=== PATIENT | female | born 1965 | race Caucasian/White ===

== ENCOUNTER 2018-10-17 09:43 | Emergency (ER) | payer BC ==
--- OUTSIDE RECORDS SUMMARY | 2018-10-17 09:51 | XMS REPORT | Continuity of Care Document ---
:1965 External Reference #:[id number] Author Name Ernestine Tavarez Care Team Providers Name Role Phone Foster Trejo MD Primary Care Physician Unavailable Payers Date Identification Numbers Payment Provider Subscriber Policy Number: [id number] [employer] Kana Evans PayID: [id number] [address] [address] [place] [address] Family History Date Family Member(s) Observation Comments General Diabetes General Heart Disease General Hypertension Social History Type Date Description Comments Sex Unknown Lives With Spouse Occupation nurse practioner Tobacco Use Start: Unknown Patient has never smoked Smoking Status Reviewed: 09/30/18 Patient has never smoked Allergies, Adverse Reactions, Alerts Description No Known Drug Allergies Medications Active Medications SIG Qnty Indications Ordering Provider Date Synthroid 1 by mouth every Unknown 100mcg Tablets day History Medications Ciprofloxacin HCL 1 tab by mouth 6tabs Z71.9 Chapin DMeena 06/27/2017 - 500mg twice a day if Gadiel Low 09/29/2018 Tablets needed for diarrhea Atovaquone-Proguanil 1 tab by mouth 20tabs Z71.9 Chapin DMeena 06/27/2017 - HCL daily, 2 days Gadiel Low 09/29/2018 250-100mg Tablets before trip, each day there, 7 days after return Immunizations CPT Code Status Date Vaccine Lot # [id number] Given 01/04/2018 Hepatitis A Vaccine Adult Dosage [id number] Given 06/27/2017 Typhoid Vaccine [id number] Given 06/27/2017 Hepatitis A Vaccine Adult Dosage [id number] Vital Signs Date Vital Result Comment 09/30/2018 1:10pm Height 66 inches 5'6" Weight 136.00 lb BP Systolic 124 mmHg BP Diastolic 80 mmHg Respiratory Rate 14 /min Body Temperature 96.8 F Pain Level 3 BMI (Body Mass Index) 21.9 kg/m2 06/27/2017 8:56am Height 66 inches 5'6" Weight 149.00 lb Heart Rate 60 /min BP Systolic Sitting 128 mmHg BP Diastolic Sitting 78 mmHg Respiratory Rate 14 /min Body Temperature 97.5 F BMI (Body Mass Index) 24.0 kg/m2 Encounters Type Date Location Provider Dx Diagnosis Office Visit 07/11/2018 [facility] AT Angela Neely, L40.8 Other psoriasis 11:00a Kartik BEE Office Visit 06/27/2017 [facility] Chapin Turk Z71.9 Counseling, 8:50a Infectious Diseases Gadiel Low unspecified Z23 Encounter for immunization Plan of Treatment Future Appointment(s):10/16/2018 8:15 am - Joyce Jay M.D. at [facility]11/21/2018 2:30 pm - Angela Neely MD at [facility] AT Kbkgeggm84/29/2019 - Joyce Jay M.D.M25.422 Effusion, left elbowFollow up: Follow up: 2 czvqiH42.522 Pain in left sreveA72.xxxA Unspecified fall, initial encounter
--- OUTSIDE RECORDS SUMMARY | 2018-10-17 09:51 | XMS REPORT | Continuity of Care Document ---
:1965 External Reference #:[id number] Author Name Joyce Jay M.D. (transmitted by agent of provider Tonya Guerrero) Address [address] [place] [address] Care Team Providers Name Role Phone Foster Trejo MD - Internal Medicine Care Team Information Strategy Analyst Problems Active Problems Provider Date Peroneal tendinitis, left leg Joyce Jay M.D. Onset: 10/16/2018 Arthralgia of the ankle and/or foot Joyce Jay M.D. Onset: 10/16/2018 Social History Type Date Description Comments Sex Unknown Tobacco Use Start: Unknown Patient has never smoked Smoking Status Reviewed: 10/16/18 Patient has never smoked Allergies, Adverse Reactions, Alerts Description No Known Drug Allergies Medications Active Medications SIG Qnty Indications Ordering Provider Date Synthroid 1 by mouth every Unknown 100mcg Tablets day Immunizations CPT Code Status Date Vaccine Lot # [id number] Given 01/04/2018 Hepatitis A Vaccine Adult Dosage [id number] Given 06/27/2017 Typhoid Vaccine [id number] Given 06/27/2017 Hepatitis A Vaccine Adult Dosage [id number] Vital Signs Date Vital Result Comment 10/16/2018 8:32am Height 66.75 inches 5'6.75" Weight 137.00 lb Heart Rate 60 /min Body Temperature 96.7 F O2 % BldC Oximetry 99 % BMI (Body Mass Index) 21.6 kg/m2 09/30/2018 1:10pm Height 66 inches 5'6" Weight 136.00 lb BP Systolic 124 mmHg BP Diastolic 80 mmHg Respiratory Rate 14 /min Body Temperature 96.8 F Pain Level 3 BMI (Body Mass Index) 21.9 kg/m2 Results Description No Information Available Procedures Description No Information Available Medical Devices Description No Information Available Encounters Type Date Location Provider Dx Diagnosis Office Visit 09/30/2018 [facility] Joyce Jay, M25.522 Pain in left 1:[facility] elbow M25.422 Effusion, left elbow W19.xxxA Unspecified fall, initial encounter Office Visit 07/11/2018 11:00a [facility] AT Angela Neely, L40.8 Other psoriasis Kartik MD Assessments Date Code Description Provider 10/16/2018 M25.522 Pain in left elbow Joyce Jay M.D. 10/16/2018 M25.422 Effusion, left elbow Joyce Jay M.D. 10/16/2018 S52.125A Nondisplaced fracture of head of left radius, Joyce Jay M.D. initial encounter for closed fracture 10/16/2018 M25.572 Pain in left ankle and joints of left foot Joyce Jay M.D. 10/16/2018 M76.72 Peroneal tendinitis, left leg Joyce Jay M.D. 09/30/2018 M25.522 Pain in left elbow Joyce Jay M.D. 09/30/2018 M25.422 Effusion, left elbow Joyce Jay M.D. 09/30/2018 W19.xxxA Unspecified fall, initial encounter Joyce Jay M.D. 07/11/2018 L40.8 Other psoriasis Angela Neely MD Plan of Treatment Future Appointment(s):11/21/2018 2:30 pm - Angela Neely MD at [facility] AT Tzovdkvj78/14/2019 - Joyce Jay M.D.M25.522 Pain in left eupicV97.422 Effusion, left ltnlyA45.125A Nondisplaced fracture of head of left radius, initial encounter for closed naaxxxvwD19.572 Pain in left ankle and joints of left footFollow up:Follow up: after testing is completed - mri l footM76.72 Peroneal tendinitis, left leg Functional Status Description No Information Available Mental Status Description No Information Available Referrals Description No Information Available
--- NOTE | 2018-10-17 10:06 | ED ---
Lower Extremity - HPI Summary HPI Summary: 53 year old F presenting to [facility] accompanied by complains of worsening left foot pain, left ankle pain, left ankle swelling, and left ankle erythema since 5 days ago after hiking in [place]. The patient rates the pain 2/10 in severity. Symptoms aggravated by bearing weight. Symptoms alleviated by Benadryl , ice, and ibuprofen. Patient denies left calf pain and fever. Patient states she is unable to bear weight. Patient states she was running 3 weeks ago in [place] on uneven, [place]ela terrain when she tripped over a chain link, fell on to her left side, and broke her left arm and scraped her left knee. 2 weeks ago, patient was [place] [place] after which she developed plantar fasciitis in her left knee. This past weekend (5 days ago) after hiking in [place], patient's left ankle became painful, swollen, and red. 3 days ago, patient drank 3 glasses of wine, and ate salami and shrimp. states patient rarely drinks alcohol, rarely eats cold cuts, but eats shrimp frequently. Patient has treated her symptoms with Benadryl, ice, iburpfoen, and ranging it. Patient states she took Keflex last night and this morning. Patient had an appointment with Dr. Jay yesterday. - History of Current Complaint Chief Complaint: EDExtremityLower Stated Complaint: FOOT INJURY PER PT Time Seen by Provider: 10/17/18 09:58 Hx Obtained From: Patient, Family/Survey Worker - Mechanism Of Injury: Unknown Onset/Duration: Days - 5 Severity Currently: Mild Pain Intensity: 2 Pain Scale Used: 0-10 Numeric Timing: Constant Location: Is Discrete @ - left foot, left ankle Associated Signs And Symptoms: Positive: Negative - left calf pain. Negative: Fever Aggravating Factor(s): Weight Bearing Alleviating Factor(s): Ice, OTC Meds - Benadryl and ibuprofen Able to Bear Weight: No - Allergies/Home Medications Allergies/Adverse Reactions: Allergies Allergy/AdvReac Type Severity Reaction Status Date / Time No Known Allergies Allergy Verified 10/17/18 09:49 Home Medications: Home Medications Levothyroxine Sodium [Synthroid] 1 tab PO DAILY 10/17/18 [History Confirmed ] PMH/Surg Hx/FS Hx/Imm Hx Endocrine/Hematology History: Denies: Hx Diabetes Cardiovascular History: Denies: Hx Hypertension, Hx Pacemaker/ICD GI History: Reports: Hx Diverticulosis - Surgical History Surgery Procedure, Year, and Place: colonoscopy Infectious Disease History: No Infectious Disease History: Denies: Traveled Outside the [place] in Last 30 Days - Family History Known Family History: Positive: Cardiac Disease - both parents had bypasses, Hypertension - mother, Diabetes - father - Social History Alcohol Use: Rare Hx Substance Use: No Substance Use Type: Reports: None Hx Tobacco Use: No Smoking Status (MU): Never Smoked Tobacco Review of Systems Negative: Fever Musculoskeletal: Negative - left calf pain Positive: Other - left foot pain, left ankle pain, left ankle swelling, and left ankle erythema All Other Systems Reviewed And Are Negative: Yes Physical Exam - Summary Physical Exam Summary: VITAL SIGNS: Reviewed. GENERAL: Patient is a well-developed and nourished FEMALE who is lying comfortable in the stretcher. Patient is not in any acute respiratory distress. HEAD AND FACE: No signs of trauma. No ecchymosis, hematomas or skull depressions. No sinus tenderness. EYES: PERRLA, EOMI x 2, No injected conjunctiva, no nystagmus. EARS: Hearing grossly intact. Ear canals and tympanic membranes are within normal limits. MOUTH: Oropharynx within normal limits. NECK: Supple, trachea is midline, no adenopathy, no JVD, no carotid bruit, no c- spine tenderness, neck with full ROM. CHEST: Symmetric, no tenderness at palpation. LUNGS: Clear to auscultation bilaterally. No wheezing or crackles. CVS: Regular rate and rhythm, S1 and S2 present, no murmurs or gallops appreciated. ABDOMEN: Soft, non-tender. No signs of distention. No rebound, no guarding, and no masses palpated. Bowel sounds are normal. EXTREMITIES: Her left foot has swelling especially around the left lateral malleolus. She has good pulses and good capillary refill and decreased ROM secondary to pain. NEURO: Alert and oriented x 3. No acute neurological deficits. Speech is normal and follows commands. SKIN: Dry and warm. Triage Information Reviewed: Yes Vital Signs On Initial Exam: Initial Vitals Temp Pulse Resp BP Pulse Ox 98.5 F 58 18 148/94 99 10/17/18 09:46 10/17/18 09:46 10/17/18 09:46 10/17/18 09:46 10/17/18 09:46 Vital Signs Reviewed: Yes Diagnostics - Vital Signs Vital Signs Temp Pulse Resp BP Pulse Ox 10/17/18 09:46 98.5 F 58 18 148/94 99 - Laboratory Result Diagrams: 10/17/18 10:42 10/17/18 10:42 Lab Statement: Any lab studies that have been ordered have been reviewed, and results considered in the medical decision making process. - CT Lower extremity CT Interpretation Completed By: Radiologist Summary of CT Findings: #. Negative for fracture or osteochondral lesion. #. Significant burden of enthesopathy and calcific tendinopathy at the calcaneal origin of the abductor digiti minimi moiety of the plantar fascia. Correlate for corresponding symptoms at this site. #. Moderate nonspecific subcutaneous edema about the ankle and hindfoot. No loculated soft tissue plane fluid collection, subcutaneous emphysema, or conspicuous foreign body. ED physician has reviewed this report. Re-Evaluation - Re-Evaluation First Eval Re-Evaluation Time: 12:25 Comment: given copy of bloodwork Lower Extremity Course/Dx - Course Assessment/Plan: 53 [facility] accompanied by complains of worsening left foot pain, left ankle pain, left ankle swelling, and left ankle erythema since 5 days ago after hiking in [place]. The patient rates the pain 2/10 in severity. Symptoms aggravated by bearing weight. Symptoms alleviated by Benadryl, ice, and ibuprofen. Patient denies left calf pain and fever. Patient states she is unable to bear weight. Patient states she was running 3 weeks ago in [place] on uneven, [place] terrain when she tripped over a chain link, fell onto her left side, and broke her left arm and scraped her left knee. 2 weeks [place], [place] [facility] [place] [place] which she developed plantar fasciitis in her left knee. This past weekend (5 days ago) after hiking in [place], patient's left ankle became painful, swollen , and red. 3 days ago, patient drank 3 glasses of wine, and ate salami and shrimp. states patient rarely drinks alcohol, rarely eats cold cuts, but eats shrimp frequently. Patient has treated her symptoms with Benadryl, ice , ibuprofen, and ranging it. Patient states she took Keflex last night and this morning. Patient had an appointment with Dr. Jay yesterday. Blood work without any significant abnormality except 4 CRP of 10. WBC is normal at 6.5. Foot CT IMPRESSION: #. Negative for fracture or osteochondral lesion. #. Significant burden of enthesopathy and calcific tendinopathy at the calcaneal origin of the abductor digiti minimi moiety of the plantar fascia. Correlate for corresponding symptoms at this site. #. Moderate nonspecific subcutaneous edema about the ankle and hindfoot. No loculated soft tissue plane fluid collection, subcutaneous emphysema, or conspicuous foreign body. In the ED course the patient was given 1 dose of Rocephin. The patient has cellulitis as well as tendinitis. The patient declined any pain medication. Therefore she will be discharged home with follow-up with PCP. - Diagnoses Provider Diagnoses: Cellulitis, Tendinitis Discharge - Sign-Out/Discharge Documenting (check all that apply): Patient Departure - Discharge Patient Received Moderate/Deep Sedation with Procedure: No - Discharge Plan Condition: Stable Disposition: HOME Prescriptions: Cephalexin CAP* [Keflex CAP*] 500 mg PO QID #40 cap Patient Education Materials: Cellulitis (ED), Tendinitis (ED) Referrals: Foster Trejo MD [Primary Care Provider] - 3 Days Additional Instructions: Follow up with your primary care provider in 3 days. Return to the Emergency Department for new or worsening symptoms. - Billing Disposition and Condition Condition: STABLE Disposition: Home - Attestation Statements Document Initiated by New: Yes Documenting Scribe: Dorcas Hernandes Provider For Whom New is Documenting (Include Credential): Vineet Chavis MD Scribe Attestation: IDorcas, scribed for Vineet Chavis MD on 10/17/18 at 1832. Scribe Documentation Reviewed: Yes Provider Attestation: The documentation as recorded by the Dorcas britt accurately reflects the service I personally performed and the decisions made by , Vineet Chavis MD Status of Scribe Document: Viewed
[2018-10-17 11:07] LABS: ABS Basophils 0.1 10^3/ul (0-0.2); ABS Eosinophils 0.1 10^3/ul (0-0.6); ABS Lymphocytes 0.7 10^3/ul (1.0-4.8); ABS Monocytes 0.5 10^3/ul (0-0.8); ABS Neutrophils 5.2 10^3/ul (1.5-7.7); Eosinophil % 1.5 %; Hematocrit 40 % (35-47); Hemoglobin 13.6 g/dL (12.0-16.0); Lymphocyte % 10.9 %; Mean Corpuscular HGB Conc 34 g/dL (31-36); Mean Corpuscular Hemoglobin 31 pg (27-31); Mean Corpuscular Volume 91 fL (80-97); Mean Platelet Volume 8.2 fL (7.4-10.4); Platelet Count 274 10^3/uL (150-450); Red Blood Count 4.41 10^6 /uL (3.70-4.87); Red Cell Distribution Width 13 % (10-15); White Blood Count 6.5 10^3/uL (3.5-10.8)
[2018-10-17 11:23] LABS: Albumin 4.4 g/dL (3.2-5.2); Albumin/Globulin Ratio 1.6 (1-3); BUN/Creatinine Ratio 16.9 (8-20); C Reactive Protein 10.65 mg/L (<8.01); Calcium 9.6 mg/dL (8.6-10.3); EGFR African American 95.6 (>60); Globulin 2.8 g/dL (2-4); Potassium 3.8 mmol/L (3.5-5.0); Total Bilirubin 0.6 mg/dL (0.2-1.0); Total Protein 7.2 g/dL (6.4-8.9); Uric Acid 4.4 mg/dL (2.3-6.6)
[2018-10-17] MEDS ORDERED: Iohexol 300* (CONTRAST) 10 ML SDV IV ONE (11:34)
[2018-10-17 11:40] LABS: Urine Appearance Clear; Urine Bilirubin Negative (Negative); Urine Blood Negative (Negative); Urine Color Yellow; Urine Glucose Negative (Negative); Urine Ketones Negative (Negative); Urine Nitrite Negative (Negative); Urine Protein Negative (Negative); Urine Specific Gravity 1.026 (1.010-1.030); Urine Urobilinogen Negative (Negative)
[2018-10-17 12:24] LABS: Erythrocyte Sed Rate 10 mm/Hr (0-29)
[2018-10-17] MEDS ORDERED: cefTRIAXone(*) 1 GM in NS 0.9% 50 ML* 50 ML IVPB ONE (12:53)
[2018-10-17 14:16] VITALS: BP 0/0
== END 2018-10-17 14:14 | disposition home or self-care (01) ==
LOC: ED 09:43
DX: L03.116 Cellulitis of left lower limb (principal); M76.9 Unspecified enthesopathy, lower limb, excluding foot; K57.90 Diverticulosis of intestine, part unspecified, without perforation or abscess without bleeding; Z79.899 Other long term (current) drug therapy
CPT/HCPCS: 36415; 80053; 81003; 83605; 84550; 85025; 85652; 86140; 87040; 96365; 99282; J0696; Q9967